=== PATIENT | male | born 1945 ===

== ENCOUNTER 2024-04-08 05:35 | Day surgery (SDC) | payer OTHER ==
[2024-04-02 09:12] LABS: HEMATOCRIT 36.7 % (39.0-48.0); HEMOGLOBIN 12.9 g/dL (13-16.00); MEAN CELL VOLUME 99.7 fL (80.0-100.00); MEAN CORPUSCULAR HEMOGLOBIN 35.1 pg (27.00-32.0); MEAN CORPUSCULAR HGB CONC 35.2 g/dl (32.0-36.0); PLATELET COUNT 182 K/uL (150-450); RED BLOOD COUNT 3.68 M/uL (4.00-6.00); RED CELL DISTRIBUTION WIDTH 13.8 % (11.5-14.5)
[2024-04-02 09:35] LABS: PH,URINE 5.5 (5.0-8.0); URINE APPEARANCE Clear; URINE BILIRRUBIN Negative (NEGATIVE); URINE BLOOD Negative; URINE COLOR Yellow; URINE GLUCOSE Negative (NEGATIVE); URINE KETONE Negative (NEGATIVE); URINE LEUKOCYTE Negative; URINE NITRATE Negative; URINE PROTEIN Negative (NEGATIVE); URINE UROBILINOGEN 0.2 E.U./dl
[2024-04-02 09:40] LABS: URINE BACTERIA 8.8 uL (0.0-1933); URINE EPITHELIAL CELLS 9.7 uL (0.0-38.8); URINE RBC 18.3 uL (0.0-20.8); URINE WBC 10.3 uL (0.0-23.2)
[2024-04-02 10:14] LABS: ALBUMIN 3.7 gm/dL (3.4-5.0); BILIRUBIN TOTAL 1.04 mg/dL (0.3-1.2); CALCIUM 8.8 mg/dL (8.5-10.1); CREATININE SERUM 0.74 mg/dL (0.70-1.30); GFR 102.29; GLOBULINA 3.2 G/DL (2.4-3.5); POTASSIUM 4.14 mEq/L (3.5-5.1); TOTAL PROTEIN 6.9 gm/dL (6.4-8.2)
[2024-04-02 10:15] LABS: INR 1.05; PARTIAL THROMBOPLASTIN TIME 31.7 SECONDS (22.0-34.0); PROTHROMBIN TIME 11.4 SECONDS (9.0-11.5)
[~2024-04-08 05:35] MED LIST: COZAAR50 MG PO; PROSCAR5 MG PO; TAMS0.4C PO; ZETIA10 MG PO
[2024-04-08] MEDS ORDERED: CLINDAMYCIN PHOSPHATE 150 MG/ML (900mg) IV ONE (12:00)
== END 2024-04-08 14:55 | disposition home or self-care (01) ==
LOC: CIR.AMB 05:35
PROVIDERS: ATTEND Orthopaedic Surgery Hand Surgery
DX: G56.01 Carpal tunnel syndrome, right upper limb (principal); Z88.1 Allergy status to other antibiotic agents; Z88.0 Allergy status to penicillin; I10 Essential (primary) hypertension